=== PATIENT | female | born 2000 | race Caucasian/White ===

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

== ENCOUNTER 2022-01-09 14:09 | Outpatient (RCR) | payer OTHER, SELFPAY ==
[2022-01-12] MEDS: RHO(D) IMMUNE GLOBULIN 300 MCG/2 ML SYRINGE IM (10:16)
== END 2022-04-09 23:59 | disposition home or self-care (01) ==
LOC: ANHLAB 14:09
PROVIDERS: Visit Provider Obstetrics & Gynecology
DX: Z29.13 Encounter for prophylactic Rho(D) immune globulin (principal); O36.0190 Maternal care for anti-D [Rh] antibodies, unspecified trimester, not applicable or unspecified; Z3A.00 Weeks of gestation of pregnancy not specified
CPT/HCPCS: 36415; 85461; 90384; J2790

== ENCOUNTER 2022-03-19 14:30 | Observation (INO) | payer OTHER, SELFPAY ==
[2022-03-19 15:00] VITALS: BMI 30.4
--- NOTE | 2022-03-19 16:01 | LDADM ---
This patient, Kusum Solano, was admitted to Labor/Delivery/Recovery 104 on 03/19/22 at 14:30. Plans for labor, pain management and were discussed with patient. Patient/family oriented to hospital policies and general routines including ID bracelet, bed and alarms, visiting hours, pain management, procedures, bathroom and other care routines, personal items, smoking policy, room service/diet and guest tray routines, infant security routines, and visiting hours. Patient/Family are encouraged to report perceived risks to care and to ask questions if they do not understand what they are told or what they should do. See OBIX for further documentation.
--- NOTE | 2022-03-20 07:25 | PM.OBTRLD ---
OB - Triage/Final Diagnosis Visit Information Date of evaluation: 03/19/22 Reason for evaluation: threatened labor Comments/Additional reasons for admission: I have assessed the risk for this patient, Kusumblayne Solano, and determined that she would benefit from observation care. Evaluation Vital signs: Vital Signs - 24 hr 03/19/22 15:00 Oxygen Delivery Room Air
== END 2022-03-19 16:00 | disposition home or self-care (01) ==
PROVIDERS: Admitting Provider Obstetrics & Gynecology; Visit Provider Obstetrics & Gynecology
DX: O47.1 False labor at or after 37 completed weeks of gestation (principal); Z3A.38 38 weeks gestation of pregnancy
CPT/HCPCS: G0378; G0379

== ENCOUNTER 2022-03-21 05:40 | Inpatient (IN) | payer OTHER, SELFPAY ==
[2022-03-21] VITALS (113 sets, daily range): BP systolic 79–143; BP diastolic 43–83; PULSE 49–113; RESP 16–18; TEMP 36.1–36.9; O2SAT 75–100; BMI 31.0
--- NOTE | 2022-03-21 06:19 | P.PNAN_ITS ---
Anes - Eval Pre Procedure Procedure: labor epidural Date/Time: 03/21/22 06:19 Surgeon: michelle Preop Diagnosis: pain during labor Pre Op Diagnosis: IOL Patient Data Age: 22 Gender: F Height: Weight: Last Vital Signs Temp 36.5 C 03/21/22 05:58 Pulse 102 H 03/21/22 05:58 Resp 16 03/21/22 05:58 BP 112/71 03/21/22 05:58 Allergies Allergy/AdvReac Type Severity Reaction Status Date / Time No Known Allergies Allergy Unverified 12/26/18 13:10 Home Medications Medication Instructions Recorded Confirmed Type albuterol sulfate 90 mcg/actuation 1 puff inhalation BID 03/02/20 03/02/20 History aerosol inhaler (ProAir HFA) vits no.126-ferrous fum 1 tablet PO DAILY 03/02/20 03/02/20 History 28 mg iron-folic acid 800 mcg tablet (Classic ) sertraline 50 mg tablet (Zoloft) 50 mg PO Q12HR 02/26/22 History Patient hx anesthesia problems: none Family hx anesthesia problems: none Results Review: All pre-operative results and documents have been reviewed as part of the pre- operative evaluation. [facility] Past Medical History Medical History (Updated 04/08/20 @ 08:14 by Nabeel Saxena MD) Asthma Marijuana smoker UTI due to Klebsiella species Family History Family History Mother Anxiety Grandparent Diabetes mellitus Heart disease Hypertension Grandparent Anxiety Diabetes mellitus Depression Heart disease Hypertension Social History Social History Smoking packs per day: 1 Smoking cigarettes per day: 20.0 Years smoked: 2 Smoking pack-years: 2.00 Smoking status: Current every day smoker Tobacco type: cigarettes Second hand tobacco smoke exposure: Yes Alcohol intake: never Substance use: current Substance use type: marijuana Last use: 02/25/22 Additional occupation/education comments: 8th grade drop out Gender identity (if verbalized by the patient): Female Sexual Orientation (if Verbalized by the Patient): Straight or Heterosexual Spiritual care concerns: No Agree to blood products: Yes Exam Day of Procedure 03/21/22 06:19
[2022-03-21] MEDS: LACTATED RINGERS 1,000 ML 125 ML IV CONT ×3 (06:46→10:49)
[2022-03-21] MEDS: OXYTOCIN 30 UNITS/NS 500 ML 30 UNITS/500 ML BAG IV CONT (06:47)
[2022-03-21] MEDS: AMPICILLIN 2 GM/NS 100 ML 2 GM/100 ML BAG IVPB (06:47)
--- NOTE | 2022-03-21 06:54 | PM.IMHP ---
H&P: HPI History of Present Illness Date/Time: 03/21/22 06:54 Chief Complaint: Induction of labor at term Narrative: a 22-year-old 3 para 1011 whose last menstrual period is unknown, EDC is 03/28/2022, confirmed by 11 week ultrasound, who presents at 39 weeks gestation for induction of labor. She is positive for group B strep with advanced cervical dilatation. has been relatively unremarkable. She does have depression and has been on sertraline through the . [facility] Past Medical History Medical History Asthma Marijuana smoker UTI due to Klebsiella species Family History Family History Mother Anxiety Grandparent Diabetes mellitus Heart disease Hypertension Grandparent Anxiety Diabetes mellitus Depression Heart disease Hypertension Social History Social History Smoking packs per day: 1 Smoking cigarettes per day: 20.0 Years smoked: 2 Smoking pack-years: 2.00 Smoking status: Current every day smoker Tobacco type: cigarettes Second hand tobacco smoke exposure: Yes Alcohol intake: never Substance use: current Substance use type: marijuana Last use: 02/25/22 Additional occupation/education comments: 8th grade drop out Gender identity (if verbalized by the patient): Female Sexual Orientation (if Verbalized by the Patient): Straight or Heterosexual Spiritual care concerns: No Agree to blood products: Yes Meds Home Medications and Allergies Home Medications Medication Instructions Recorded Confirmed Type albuterol sulfate 90 mcg/actuation 1 puff inhalation BID 03/02/20 03/02/20 History aerosol inhaler (ProAir HFA) vits no.126-ferrous fum 1 tablet PO DAILY 03/02/20 03/02/20 History 28 mg iron-folic acid 800 mcg tablet (Classic ) sertraline 50 mg tablet (Zoloft) 50 mg PO Q12HR 02/26/22 History Allergies Allergy/AdvReac Type Severity Reaction Status Date / Time No Known Allergies Allergy Unverified 12/26/18 13:10 Vital Signs Vital Signs - 24 hr 03/21/22 05:58 03/21/22 06:30 03/21/22 06:32 Temperature 97.7 F Pulse Rate 102 H 91 92 Respiratory Rate 16 Blood Pressure 112/71 117/56 L 112/65 Exam Const: General: cooperative and healthy appearing Nutritional Appearance: average body habitus Orientation/consciousness: oriented to person, oriented to place and oriented to time HENMT: Head: normal to inspection Neck: Neck: normal visual inspection Chest: Chest palpation & inspection: normal inspection of the chest Resp: Effort & Inspection: normal respiratory effort Cardio: Rate: regular rate Rhythm: regular rhythm GI: Inspection: normal to inspection : External Female Exam: normal external appearance Speculum Exam - Vagina: normal appearance of the vagina Speculum Exam - Cervix: normal appearance of the cervix ( Cervix 3/ 75/-1. AROM clear. FHT is reassuring) Bimanual exam- vagina & uterus: enlarged Assessment and Plan Assessment and plan (1) Term : Code(s): Z34.90 - Encounter for supervision of normal , unspecified, unspecified trimester Status: Acute (2) Group beta Strep positive: Code(s): B95.1 - Streptococcus, group B, as the cause of diseases classified elsewhere Status: Acute Plan medical induction of labor. Spontaneous vaginal delivery is expected. Group B strep prophylaxis. Epidural candidate
--- NOTE | 2022-03-21 06:58 | LDADM ---
This patient, Kusum Solano, was admitted to Labor/Delivery/Recovery 104 on 03/21/22 at 05:40. Plans for labor, pain management and were discussed with patient. Patient/family oriented to hospital policies and general routines including ID bracelet, bed and alarms, visiting hours, pain management, procedures, bathroom and other care routines, personal items, smoking policy, room service/diet and guest tray routines, infant security routines, and visiting hours. Patient/Family are encouraged to report perceived risks to care and to ask questions if they do not understand what they are told or what they should do. See OBIX for further documentation.
[2022-03-21 07:02] LABS: Basophils Absolute Auto 0.1 K/mm3 (0.0-0.1); Basophils Percent Auto 0.5 % (0.2-1.2); Eosinophils Absolute Auto 0.1 K/mm3 (0-0.3); Eosinophils Percent Auto 0.8 % (0-4.4); Hematocrit 30.8 % (37.0-47.0); Hemoglobin 9.9 g/dL (12.0-15.0); Immature Granulocyte Absolute 0.26 K/mm3 (0.00-0.031); Immature Granulocyte Percent A 1.8 % (0-0.5); Lymphocytes Absolute Auto 2.95 K/mm3 (0.9-3.2); Lymphocytes Percent Auto 20.8 % (18.3-44.2); Mean Corpuscular HGB Conc 32.1 g/dl (32-36); Mean Corpuscular Hemoglobin 27.7 pg (26-34); Mean Corpuscular Volume 86.3 fl (80-100); Mean Platelet Volume 11.6 fl (7.4-10.4); Monocytes Percent Auto 7.1 % (2.6-8.5); Neutrophils Absolute Auto 9.8 K/mm3 (1.3-6.7); Platelet Count Result 275 k/mm3 (150-375); Red Blood Count 3.57 M/mm3 (4.2-5.4); Red Cell Distribution Width 14.1 % (11.5-14.5); White Blood Count 14.2 K/mm3 (4.5-10.0)
[2022-03-21 07:18] LABS: Barbiturate Screen Urine Negative (Negative); Benzodiazepines Screen Urine Negative (Negative)
[2022-03-21 07:21] LABS: Amphetamine Screen Urine Negative (Negative); Cocaine Screen Urine Negative (Negative); Methadone Screen Urine Negative (Negative); Opiate Screen Urine Negative (Negative); Phencyclidine Screen Urine Negative (Negative)
[2022-03-21 07:36] LABS: Cannabinoid Screen Urine Positive (Negative)
[2022-03-21] MEDS: AMPICILLIN 1 GM/NS 50 ML 1 GM/50 ML BAG IVPB (10:45)
[2022-03-21 12:11] LABS: Rapid Plasma Reagin Non-Reactive (NonReactive)
--- NOTE | 2022-03-21 14:49 | PM.OBPRVD ---
OB - Delivery Note Procedure Delivery date: 03/21/22 Procedure: mil/gbs proph Induction method: AROM Delivery augmentation: Pitocin Delivery monitor: External FHT and External Uterine Route of delivery: Episiotomy description: None Laceration Description: Perineal - 1st Degree Delivery repair: vicryl Specimen: No Quantitative Blood Loss (ml): 59 Anesthesia type: Epidural Disposition: Floor Complications: amp x 2 Baby Date of : 03/21/22 Time of : 14:40 Weeks of gestation at delivery: 39 Infant gender: Female presentation: vertex position: Right Occiput Anterior Placenta delivery description: Spontaneous Cord Vessel Description: 3 Vessels score one minute: 8 score five minutes: 9
[2022-03-21] MEDS: OXYTOCIN 30 UNITS/NS 500 ML 30 UNITS/500 ML BAG 125 UNITS IV CONT (15:12)
[2022-03-21] MEDS: IBUPROFEN 600 MG TABLET PO (15:44)
[2022-03-21] MEDS: WITCH HAZEL 40 PADS 1 PAD TOPICAL (15:46)
[2022-03-21] MEDS: BENZOCAINE 20% AER SPR (*SP) 56 GM CAN 1 SPRAY TOPICAL (15:46)
--- NOTE | 2022-03-21 16:36 | PC.NURSE ---
Report given to YANN Chavez.
--- NOTE | 2022-03-21 17:09 | PC.NURSE ---
Amnio infusion not given. Orders for amnio infusion if pt variables not resolved with position changes. Pt variables were resolved with position changes.
--- NOTE | 2022-03-21 17:17 | OBPPTRN ---
Patient transferred to post room #281 via wheelchair. Support person present. Oriented to unit, room, information board, rooming in, admission packet and security measures. Patient verbalizes understanding.
[2022-03-21] MEDS: POLYSACCHARIDE IRON COMPLEX 150 MG CAPSULE PO (17:41)
[2022-03-22 00:20] VITALS: BP 102/64; PULSE 75; RESP 14; TEMP 36.9; O2SAT 99
[2022-03-22] MEDS: IBUPROFEN 600 MG TABLET PO ×2 (00:21→13:30)
[2022-03-22 04:10] VITALS: BP 105/65; PULSE 66; RESP 14; TEMP 36.7; O2SAT 99
[2022-03-22 05:31] LABS: Hematocrit 25.4 % (37.0-47.0); Hemoglobin 8.2 g/dL (12.0-15.0)
[2022-03-22 07:10] VITALS: BP 105/71; PULSE 77; RESP 16; TEMP 36.6; O2SAT 100
--- NOTE | 2022-03-22 07:47 | WPDANLDPN2 ---
Anes-Prog Note L&D Date/Time: 03/22/22 07:47 Comfortable throughout: labor and delivery Neuraxial method: epidural Epidural/Spinal procedure site: clean & non-tender Neuro status: Neuro function grossly intact. Cardiovascular status: normal Respiratory status: normal Airway patency: baseline Mental status: baseline Post-Op hydration status: normal Vital Signs: Last Vital Signs Temp 36.7 C 03/22/22 04:10 Pulse 66 03/22/22 04:10 Resp 14 03/22/22 04:10 BP 105/65 03/22/22 04:10 Pulse Ox 99 03/22/22 04:10 O2 Del Method Room Air 03/21/22 20:10 Pain score (VAS): 08/21 I/O: Intake & Output 03/21/22 03/21/22 03/22/22 15:59 23:59 07:59 Intake Total 1999 Output Total 59 220 Balance 1941 - Post-procedural complaints: none Patient feedback: Patient satisfied with anesthetic care.
[2022-03-22] MEDS: MULTIVIT/MIN/PREN/FOL AC/IRON TABLET 1 TAB PO (09:43)
[2022-03-22] MEDS: POLYSACCHARIDE IRON COMPLEX 150 MG CAPSULE PO ×2 (09:43→18:42)
[2022-03-22] MEDS: DOCUSATE SODIUM 100 MG CAPSULE PO ×2 (09:43→18:42)
--- NOTE | 2022-03-22 09:47 | PC.NURSE ---
[id number] Introductions were made, then consulted with patient to assess needs related to . Mother led the conversation with her?plans to feed?her infant and the?experience so far. Mother states she bottle fed her infant because her nipples are sore. Resources provided for inpatient and outpatient services using a resource guide and mom/baby guide. Mother voiced understanding of information and will call if there is a request for assistance. Reported to primary RN.
--- NOTE | 2022-03-22 10:44 | PC.NURSE ---
[id number] Patient called RN to the room for assistance. Consulted with patient to assess needs related to . Mother led the conversation with her experience feeding her so far and states she supplemented with a bottle twice related to her nipples being sore. Left nipple is excoriated down the middle of the nipple from earlier and right nipple is less sore and no injury is seen. Mother works well with her with encouragement and education. Diaper changed of a small stool, then encouraged understanding of the benefits of skin to skin (unwrapping and placing vertically on her chest), responsive feeding and how to watch for early feeding signs, frequency of feeding on demand about every 8-12 times in 24 hours (every 2-3 hours), milk production, duration of feeding, signs of adequate intake/output and how to record on the feeding sheet. Reviewed positioning and ear, shoulder, hip alignment, supporting the breast, asymmetrical latch (off-center), and leading with the chin with a big open side gape. latched optimally to the right breast in cross cradle position. Education given to mother of how to visualize good rocking motion suck and how to visualize with listening for good swallow pause ratios, and how to compress to stimulate drinking at the breast. Discussed how to watch for good intake using the pie demonstration. was able to maintain latch without discomfort to mother. Nipple care reviewed with optimal latch and good positioning. Reminding mother of comfort measures of healing with a warm and wet washcloth to rinse breast, then leave open to air-dry as needed. Reviewed good handwashing when or touching the breast/nipples to prevent infection. Infant self-detached and was placed skin to skin. Once feeding cues were visualized was moved to the left breast using the football positioning. Infant latched effectively but did not maintain for more than 5 min. Infant placed skin to skin, feeding cues visualized, then infant latched to the right breast using the football positioning and maintained latch with no pain to mother for 15 min. Another diaper is changed with urine and large meconium stool. Resources used to facilitate learning were used with the tool/mom and baby guide. Mother voiced understanding of responsive feedings, stimulating with skin to skin, hand expressed colostrum, touch, talking to to encourage if it has been 2 -3 hours since the start of the last , to call if infant does not latch or there is discomfort with . Reported to the primary RN.
[2022-03-22] MEDS: ACETAMINOPHEN 325 MG TABLET 650 MG PO ×2 (10:50→18:40)
[2022-03-22 11:43] VITALS: BP 109/61; PULSE 90; RESP 16; TEMP 36.6; O2SAT 100
--- NOTE | 2022-03-22 12:35 | PC.NURSE ---
[id number] Consulted with patient to assess needs related to after patient requested. Mother is resting with her infant swaddled and mother states infant was showing feeding cues, then went to sleep. Mother works well with her with encouragement. Reviewed working with , protecting the nipples with an optimal deep latch, good positioning, and good hand washing. Encouraged understanding the benefits of skin to skin, responding to feeding cues, frequencies of feeding 8-12 times in 24 hours (approximately 2-3 hours), and signs of adequate intake encouraging swallowing at the breast. Reviewed positioning and alignment, supporting breast, off-centered (asymmetrical latch) and leading with the chin with big open wide gape. Infant latched optimally to the right breast in football position. Education given to mother of how to visualize suck/swallow ratios and drinking at the breast. Infant was able to maintain latch without discomfort to mother. Nipple care reviewed with optimal latch and good positioning. Resources from earlier were referred to facilitate learning. Mother voiced understanding of the education shared, calling for assistance if the infant does not latch or if there is discomfort with . Reported to the primary RN.
[2022-03-22] MEDS: RHO(D) IMMUNE GLOBULIN 300 MCG/2 ML SYRINGE IM (13:24)
--- NOTE | 2022-03-22 14:00 | PC.NURSE ---
Pt introductions made and plan of care discussed per post , pain management, breast feeding, daily care activities. PT received such instructions this shift via one to one discussion, mom baby care guide and demonstrations. PT sole recipient of such instructions and no barriers to learning identified at this time. PT verbalized understanding of such care.
[2022-03-22 19:30] VITALS: BP 113/57; PULSE 78; RESP 14; TEMP 36.7; O2SAT 100
[2022-03-23] MEDS: IBUPROFEN 600 MG TABLET PO ×2 (01:37→09:01)
--- NOTE | 2022-03-23 06:52 | P.DS_ITS ---
DS: Admitting Diagnosis Discharge Date 03/23/2022 Admitting Diagnosis term DS: Discharge Diagnosis Discharge Diagnosis (1) Term : Code(s): Z34.90 - Encounter for supervision of normal , unspecified, unspecified trimester Status: Acute (2) Group beta Strep positive: Code(s): B95.1 - Streptococcus, group B, as the cause of diseases classified elsewhere Status: Acute DS: Summary Hospital Course Reason for hospitalization: labor at term Hospital Course: the patient was admitted for induction labor with group B strep underwent spontaneous vaginal delivery with group B strep prophylaxis. Her 48hour course was unremarkable. She remained afebrile. She was up, voiding without difficult y, ambulating, generally without complai Time Spent with Patient Time attestation: Total time spent providing and/or coordinating discharge services: DS: Data Data Completed and Pending Labs on day of discharge: Labs from last 24 hours 03/22/22 04:09 Blood Type A Negative Antibody Screen TNP Screen Negative Baby's Blood Type A pos Baby's CHELSEA Positive Doses of RhIg Required 1 Discharge Plan Discharge Attending physician on discharge: Isaiah Don Discharging Clinician: Isaiah Don Patient Disposition: Home Health Service Activity: no straining and pelvic rest Diet: heart healthy Wound Care Instructions: follow printed instructions Patient Instructions: Antibiotic Form Stand Alone Forms: General Discharge Information Follow-up/Referrals: Isaiah Don MD [Physician] - Discharge Medications: Continued sertraline [Zoloft] 50 mg tablet 50 mg PO Q12HR albuterol sulfate [ProAir HFA] 90 mcg/actuation HFA aerosol inhaler 1 puff INHALATION BID Classic 28 mg iron- 800 mcg tablet 1 tablet PO DAILY Date of admission: 03/21/22 05:40 Primary Care Provider: PHYSICIAN,MANAGER FLIGHT Admitting Provider: Isaiah Don Attending physician on admission: Isaiah Don Condition: Stable
--- NOTE | 2022-03-23 06:55 | PM.OBPNVD ---
OB - PN: Subj Subjective Date/time seen: 03/23/22 06:55 Patient comments: no complaints and pain well controlled baby status: doing well OB - PN: Obj Data Labs CBC & Chem 7: 03/22/22 04:09 Labs: Laboratory Results - last 24 hr 03/22/22 04:09 Blood Type A Negative Antibody Screen TNP Screen Negative Baby's Blood Type A pos Baby's CHELSEA Positive Doses of RhIg Required 1 OB - PN A/P Plan day: 2 Plan: routine care, discharge home and follow up 6 weeks Time Spent With Patient Time: Total time spent is greater than 50% in coordination of care (as documented) at patient's floor/unit and/or counseling patient: Time with patient: less than 15 minutes
[2022-03-23 07:40] VITALS: BP 107/66; PULSE 85; RESP 16; TEMP 36.4; O2SAT 100
[2022-03-23 08:00] VITALS: PULSE 85; RESP 16; O2SAT 100
[2022-03-23] MEDS: DOCUSATE SODIUM 100 MG CAPSULE PO (09:01)
[2022-03-23] MEDS: MULTIVIT/MIN/PREN/FOL AC/IRON TABLET 1 TAB PO (09:01)
[2022-03-23] MEDS: POLYSACCHARIDE IRON COMPLEX 150 MG CAPSULE PO (09:01)
--- NOTE | 2022-03-23 10:16 | PC.NURSE ---
Patient viewed the discharge video Mother & Baby Care, The First Two Weeks . Patient was given the opportunity and encouraged to ask questions. Patient verbalized understanding of information shared and has been given the mother/baby guide for home reference.
[2022-03-24 11:48] VITALS: BP 104/54; PULSE 79; RESP 16; TEMP 37.1; O2SAT 100
== END 2022-03-23 11:05 | disposition home or self-care (01) | DRG 560 ==
LOC: ANHLDR 05:42 → ANHOB2 17:24
PROVIDERS: Admitting Provider Obstetrics & Gynecology; Visit Provider Obstetrics & Gynecology
DX: O99.824 Streptococcus B carrier state complicating childbirth (principal); O70.0 First degree perineal laceration during delivery; O76 Abnormality in fetal heart rate and rhythm complicating labor and delivery; Z3A.39 39 weeks gestation of pregnancy; Z37.0 Single live birth
CPT/HCPCS: 36415; 80307; 85014; 85018; 85025; 85461; 86592; 86850; 86880; 86900; 86901; 86902; 90384; A9270; J0290; J2590; J2790; J2795; J7120

== ENCOUNTER 2024-01-14 10:04 | Outpatient (RCR) | payer OTHER, SELFPAY ==
[2024-01-15] MEDS: RHO(D) IMMUNE GLOBULIN 300 MCG/2 ML SYRINGE IM (14:56)
== END 2024-04-13 23:59 | disposition home or self-care (01) ==
LOC: ANHLAB 10:04
PROVIDERS: Visit Provider Obstetrics & Gynecology
DX: Z29.13 Encounter for prophylactic Rho(D) immune globulin (principal); O36.0190 Maternal care for anti-D [Rh] antibodies, unspecified trimester, not applicable or unspecified; Z3A.00 Weeks of gestation of pregnancy not specified
CPT/HCPCS: 36415; 85461; 86850; 86900; 86901; 90384; 96372; J2790

== ENCOUNTER 2024-03-11 12:02 | Outpatient (RCR) | payer OTHER, SELFPAY ==
[2024-02-18 15:36] VITALS: BP 100/52; PULSE 93
[2024-02-25 15:59] VITALS: BP 104/58; PULSE 100
[2024-03-06 14:12] VITALS: BP 104/64; PULSE 106
[2024-03-11 12:45] VITALS: BP 102/62; PULSE 98
== END 2024-05-18 23:59 | disposition home or self-care (01) ==
LOC: ANHOBOP 12:02
PROVIDERS: Visit Provider Obstetrics & Gynecology
DX: O36.8930 Maternal care for other specified fetal problems, third trimester, not applicable or unspecified (principal); Q27.0 Congenital absence and hypoplasia of umbilical artery; Z3A.34 34 weeks gestation of pregnancy; Z3A.35 35 weeks gestation of pregnancy; Z3A.36 36 weeks gestation of pregnancy; Z3A.37 37 weeks gestation of pregnancy
CPT/HCPCS: 59025

== ENCOUNTER 2024-03-26 05:52 | Inpatient (IN) | payer OTHER, SELFPAY ==
[2024-03-26] VITALS (110 sets, daily range): BP systolic 80–117; BP diastolic 32–80; PULSE 74–123; RESP 18; TEMP 36.5–37.2; O2SAT 93–100; BMI 29.1
[2024-03-26 06:52] LABS: Basophils Absolute Auto 0.1 K/mm3 (0.0-0.1); Basophils Percent Auto 0.5 % (0.2-1.2); Eosinophils Absolute Auto 0.1 K/mm3 (0-0.3); Eosinophils Percent Auto 0.8 % (0-4.4); Hematocrit 30.2 % (37.0-47.0); Hemoglobin 9.6 g/dL (12.0-15.0); Immature Granulocyte Absolute 0.27 K/mm3 (0.00-0.031); Immature Granulocyte Percent A 2.1 % (0-0.5); Lymphocytes Absolute Auto 2.06 K/mm3 (0.9-3.2); Lymphocytes Percent Auto 15.8 % (18.3-44.2); Mean Corpuscular HGB Conc 31.8 g/dl (32-36); Mean Corpuscular Hemoglobin 25.7 pg (26-34); Mean Platelet Volume 10.9 fl (7.4-10.4); Monocytes Absolute Auto 0.9 K/mm3 (0.1-0.6); Neutrophils Absolute Auto 9.6 K/mm3 (1.3-6.7); Neutrophils Percent Auto 73.8 % (45.5-73.1); Platelet Count Result 220 k/mm3 (150-375); Red Blood Count 3.73 M/mm3 (4.2-5.4); Red Cell Distribution Width 14.6 % (11.5-14.5); White Blood Count 13.1 K/mm3 (4.5-10.0)
[2024-03-26] MEDS: LACTATED RINGERS 1,000 ML 125 ML IV CONT ×2 (06:58→09:52)
[2024-03-26] MEDS: OXYTOCIN 30 UNITS/NS 500 ML 30 UNITS/500 ML BAG IV CONT (07:03)
--- NOTE | 2024-03-26 07:07 | WPDANESEPP ---
Anes - Eval Pre Procedure Procedure: labor epidural Date/Time: 03/26/24 07:07 Surgeon: rickey Preop Diagnosis: pain during labor Pre Op Diagnosis: IOL Patient Data Age: 24 Gender: F Height: Weight: Allergies Allergy/AdvReac Type Severity Reaction Status Date / Time No Known Allergies Allergy Unverified 03/21/22 07:02 Home Medications Medication Instructions Recorded Confirmed Type albuterol sulfate 90 mcg/actuation 1 puff inhalation BID 03/02/20 03/11/24 History aerosol inhaler (ProAir HFA) vits no.126-ferrous fum 1 tablet PO DAILY 03/02/20 03/11/24 History 28 mg iron-folic acid 800 mcg tablet (Classic ) Laboratory Tests 03/26/24 06:45 WBC 13.1 H K/mm3 (4.5-10.0) RBC 3.73 L M/mm3 (4.2-5.4) Hgb 9.6 L g/dL (12.0-15.0) Hct 30.2 L % (37.0-47.0) MCV 81.0 fl (80-100) MCH 25.7 L pg (26-34) MCHC 31.8 L g/dl (32-36) RDW 14.6 H % (11.5-14.5) Plt Count 220 k/mm3 (150-375) MPV 10.9 H fl (7.4-10.4) Immature Gran % (Auto) 2.1 H % (0-0.5) Neut % (Auto) 73.8 H % (45.5-73.1) Lymph % (Auto) 15.8 L % (18.3-44.2) [place]dwell % (Auto) 7.0 % (2.6-8.5) Eos % (Auto) 0.8 % (0-4.4) Baso % (Auto) 0.5 % (0.2-1.2) Lymph # (Auto) 2.06 K/mm3 (0.9-3.2) Caldwell # (Auto) 0.9 H K/mm3 (0.1-0.6) Eos # (Auto) 0.1 K/mm3 (0-0.3) Baso # (Auto) 0.1 K/mm3 (0.0-0.1) Abs Immat Gran (auto) 0.27 H K/mm3 (0.00-0.031) Absolute Neuts (auto) 9.6 H K/mm3 (1.3-6.7) Absolute Nucleated RBC 0.000 K/mm3 (0.0-0.012) Nucleated RBC % 0.0 % (0.0-0.2) RPR Pending HIV 1&2 Ab/P24 Ag 4thGn Pending Patient hx anesthesia problems: none Family hx anesthesia problems: none Results Review: All pre-operative results and documents have been reviewed as part of the pre-operative evaluation. [facility] Past Medical History Medical History (Updated 03/26/24 @ 07:08 by Janet Flowers CRNA) Anxiety Asthma Depression Marijuana smoker MTHFR gene mutation UTI due to Klebsiella species Family History Family History Mother Anxiety Grandparent Diabetes mellitus Heart disease Hypertension Grandparent Anxiety Diabetes mellitus Depression Heart disease Hypertension Social History Social History Smoking packs per day: 1 Smoking cigarettes per day: 20.0 Years smoked: 2 Smoking pack-years: 2.00 Smoking status: Current every day smoker Tobacco type: cigarettes Second hand tobacco smoke exposure: Yes Alcohol intake: never Substance use: never Substance use type: marijuana Last use: 02/25/22 Living arrangements: with friend(s) Occupation/Education: unemployed Additional occupation/education comments: 8th grade drop out Gender identity (if verbalized by the patient): Female Sexual Orientation (if Verbalized by the Patient): Straight or Heterosexual Spiritual care concerns: No Agree to blood products: Yes Exam Day of Procedure 03/26/24 07:07
--- NOTE | 2024-03-26 07:24 | WPDOBADMIT ---
Obstetrics - Admit Note Admission Note: record reviewed. Additions to the history and/or subsequent changes in the physical findings follow. 24 y/o at 39 2/7 weeks here for induction of labor. GBS neg. Rh neg, got Rhogam. AVSS NST reactive TOCO: contractions every 2-4 min ABD soft, nontender, gravid, vertex EXT nontender Cervix 3/50/-2. AROM with clear fluid. A: IUP at term, with favorable cervix, desiring induction of labor. P: Oxytocin. Anticiptate .
[2024-03-26 07:45] LABS: HIV 1/2 Ab P24 Ag Result Negative (Negative)
--- NOTE | 2024-03-26 08:07 | LDADM ---
This patient, Kusum Solano, was admitted to Labor/Delivery/Recovery 106 on 03/26/24 at 05:52. Plans for labor, pain management and were discussed with patient. Patient/family oriented to hospital policies and general routines including ID bracelet, bed and alarms, visiting hours, pain management, procedures, bathroom and other care routines, personal items, smoking policy, room service/diet and guest tray routines, infant security routines, and visiting hours. Patient/Family are encouraged to report perceived risks to care and to ask questions if they do not understand what they are told or what they should do. See OBIX for further documentation.
[2024-03-26 10:32] LABS: Rapid Plasma Reagin Non-Reactive (NonReactive)
--- NOTE | 2024-03-26 12:42 | PM.OBPNLAB ---
Pain Control Date/time seen: 03/26/24 12:42 Comments: Comfortable. Pelvic Exam Dilation (cm): 5 Effacement (%): 80 station: -2 Contractions Contraction frequency: 3 Contraction pattern: Regular Status Comments: Reactive with occasional mild variable decelerations with contractions Assessment and Plan Comments: Continue labor.
[2024-03-26] MEDS: ALBUTEROL SULFATE (*SP) AEROSOL 1 PUFF 2 PUFF INHALATION (12:54)
[2024-03-26] MEDS: SODIUM CHLORIDE 0.9% IV 300 ML 600 ML I-UTERINE (13:05)
[2024-03-26] MEDS: miSOPROStol 200 MCG TABLET 800 MCG (14:47)
--- NOTE | 2024-03-26 14:53 | P.PCNOB_ITS ---
OB - Vaginal Delivery Note Procedure Delivery date: 03/26/24 Induction method: Per Pitocin Protocol Delivery augmentation: Rupture of Membranes Delivery monitor: External FHT, External Uterine and Internal Uterine Route of delivery: Laceration Description: Perineal - 1st Degree Delivery repair: vicryl (3-0) Specimen: Yes (Cord blood) Quantitative Blood Loss (ml): 350 Anesthesia type: Epidural Disposition: PACU Complications: None Narrative: 24 y/o at 39 2/7 weeks gestation who presented to the hospital for induction of labor. Oxytocin was administered intravenously. Amniotomy was performed with return of clear fluid. She received an epidural for pain control. Her labor progressed and her cervix dilated completely. She pushed with good effort and delivered the infant's head to the perineum, followed by the body. The nose and mouth were bulb suctioned. After a delay, the cord was clamped and cut. The infant was handed off the field. Cord blood was collected. The placenta delivered spontaneously and was grossly normal in appearance. The usual 3 vessel cord was noted. A first degree midline perineal laceration was sustained. This was reapproximated using 3 0 Vicryl in interrupted figure of eight fashion. Excellent hemostasis resulted as did excellent reapproximation of the normal anatomy. Needle and instrument counts were correct. Some uterine atony was addressed with Cytotec 800 mcg [place]. Hemostasis was excellent. The patient was taken to recovery room in stable condition. The infant went to the nursery in stable condition. I was present and scrubbed for the entire delivery. [place] Baby Date of : 03/26/24 Time of : 14:36 Gestational Age by Date: 39 gender: Female presentation: vertex position: Left Occiput Anterior Placenta delivery description: Spontaneous and Normal Configuration Cord Vessel Description: 3 Vessels and Delayed Cord Clamping
--- NOTE | 2024-03-26 14:55 | P.DS_ITS ---
DS: Admitting Diagnosis Discharge Date 03/27/24 Admitting Diagnosis IUP at 39 2/7 weeks DS: Discharge Diagnosis Discharge Diagnosis (1) (normal spontaneous vaginal delivery): Code(s): O80 - Encounter for full-term uncomplicated delivery Status: Acute OB - DS: Summary OB Procedures : None OB Procedures Intrapartum: Spontaneous Vag Delivery OB Procedures: : None Peripartum Data Laceration Description: Perineal - 1st Degree Time Spent with Patient Time attestation: Total time spent providing and/or coordinating discharge services: DS: Data Data Completed and Pending Labs on day of discharge: Labs from last 24 hours 03/26/24 06:45 WBC 13.1 H RBC 3.73 L Hgb 9.6 L Hct 30.2 L MCV 81.0 MCH 25.7 L MCHC 31.8 L RDW 14.6 H Plt Count 220 MPV 10.9 H Immature Gran % (Auto) 2.1 H Neut % (Auto) 73.8 H Lymph % (Auto) 15.8 L Graham % (Auto) 7.0 Eos % (Auto) 0.8 Baso % (Auto) 0.5 Lymph # (Auto) 2.06 Graham # (Auto) 0.9 H Eos # (Auto) 0.1 Baso # (Auto) 0.1 Abs Immat Gran (auto) 0.27 H Absolute Neuts (auto) 9.6 H Absolute Nucleated RBC 0.000 Nucleated RBC % 0.0 RPR Non-reactive HIV 1&2 Ab/P24 Ag 4thGn Negative Blood Type A Negative Antibody Screen Positive Antibody Identification Passive Due to RH Imm Glob Antigen Identification TNP CHELSEA, IgG Interpret Neg CHELSEA, Poly Interpret Not Performed CHELSEA, Complement Interp Negative Discharge Plan Discharge Attending physician on discharge: Anastacio Villalpando Discharging Clinician: Anastacio Villalpando Patient Disposition: Home, Self-Care Activity: pelvic rest Diet: regular Discharge Instructions: Call or return if temperature above 100.4? F, increased abdominal pain, increased vaginal bleeding or any new problems. Patient Instructions: How to Stop Smoking (DC) Stand Alone Forms: General Discharge Information Follow-up/Referrals: Anastacio Villalpando MD [Physician] - 6 Weeks Discharge Medications: New ibuprofen 600 mg tablet 600 mg PO Q6H PRN (Reason: cramps) Qty: 30 0RF sertraline 50 mg tablet 50 mg PO DAILY Qty: 30 1RF ferrous sulfate 325 mg (65 mg iron) tablet 325 mg PO DAILY Qty: 30 0RF Continued albuterol sulfate [ProAir HFA] 90 mcg/actuation HFA aerosol inhaler 1 puff INHALATION BID PRN (Reason: SOB) Classic 28 mg iron- 800 mcg tablet 1 tablet PO DAILY Date of admission: 03/26/24 05:52 Primary Care Provider: PHYSICIAN,IMPROVEMENT MANAGER Admitting Provider: Anastacio Villalpando Attending physician on admission: Anastacio Villalpando Condition: Stable
[2024-03-26] MEDS: OXYTOCIN 30 UNITS/NS 500 ML 30 UNITS/500 ML BAG 125 UNITS IV CONT (15:10)
[2024-03-26] MEDS: BENZOCAINE 20% AER SPR (*SP) 56 GM CAN 1 SPRAY TOPICAL (17:13)
[2024-03-26] MEDS: WITCH HAZEL 40 PADS 1 PAD TOPICAL (17:13)
[2024-03-26] MEDS: IBUPROFEN 600 MG TABLET PO ×2 (17:13→23:39)
[2024-03-26] MEDS: ACETAMINOPHEN 325 MG TABLET 650 MG PO ×2 (17:13→23:39)
--- NOTE | 2024-03-26 17:20 | PC.NURSE ---
Patient transferred to post room #282 via wheelchair. Support person present. Oriented to unit, room, information board, rooming in, admission packet and security measures. Patient verbalizes understanding.
[2024-03-27 04:20] VITALS: BP 100/60; PULSE 78; RESP 16; TEMP 36.5; O2SAT 100
[2024-03-27 05:39] LABS: Hematocrit 26.5 % (37.0-47.0); Hemoglobin 8.5 g/dL (12.0-15.0)
[2024-03-27] MEDS: DOCUSATE SODIUM 100 MG CAPSULE PO (08:08)
[2024-03-27] MEDS: MULTIVIT/MIN/PREN/FOL AC/IRON TABLET 1 TAB PO (08:08)
[2024-03-27] MEDS: IBUPROFEN 600 MG TABLET PO (08:08)
[2024-03-27] MEDS: POLYSACCHARIDE IRON COMPLEX 150 MG CAPSULE PO (08:08)
[2024-03-27 08:20] VITALS: BP 110/70; PULSE 82; RESP 16; TEMP 36.6; O2SAT 100
--- NOTE | 2024-03-27 09:09 | PM.OBPNVD ---
OB - PN: Subj Subjective Date/time seen: 03/27/24 09:09 Narrative: Pain OK. Would like to go home. OB - PN: Obj Data Labs 03/27/24 04:23 Labs: Laboratory Results - last 24 hr 03/26/24 03/27/24 06:45 04:23 Hgb 8.5 L Hct 26.5 L RPR Non-reactive Antibody Identification Passive Due to RH Imm Glob Antigen Identification TNP CHELSEA, Complement Interp Negative OB - PN A/P Plan day: 1 Comments: A: PPD#1, doing well. P: Home to f/u 6 weeks. Exam Psych: Other: AVSS ABD soft, nontender, fundus firm EXT nontender
[2024-03-27 12:40] VITALS: BP 91/54; PULSE 87; RESP 16; TEMP 37.2; O2SAT 100
--- NOTE | 2024-03-27 12:50 | PC.NURSE ---
Consulted with mother concerning needs and she shared her ability to independently latch infant optimally without pain. Mother is feeding appropriately for growth of and understands stimulating to eat if needed. Infant has had appropriate feedings in the last 24 hours meets the outcomes for weight, output, blood sugar and jaundice at this time. Reinforced understanding of milk production, transition of milk, signs of adequate intake, transition of stool, prevention/relief of engorgement, mastitis, community resources, and when to call a provider using the resource of the feeding sheet along with the mom and baby guide. Mother voiced understanding of the information shared, is confident to continue effectively her at home, when to call for assistance, denies any additional assistance or education at this time. Reported to the Primary RN.
--- NOTE | 2024-03-27 13:02 | WPDANLDPN2 ---
Anes-Prog Note L&D Date/Time: 03/27/24 13:02 Comfortable throughout: labor and delivery Neuraxial method: epidural Epidural/Spinal procedure site: clean & non-tender Neuro status: Neuro function grossly intact. Cardiovascular status: normal Respiratory status: normal Airway patency: baseline Mental status: baseline Post-Op hydration status: normal Vital Signs: Last Vital Signs Temp 37.2 C 03/27/24 12:40 Pulse 87 03/27/24 12:40 Resp 16 03/27/24 12:40 BP 91/54 L 03/27/24 12:40 Pulse Ox 100 03/27/24 12:40 O2 Del Method Room Air 03/26/24 08:01 Pain score (VAS): 3/10 I/O: Intake & Output 03/26/24 03/27/24 03/27/24 23:59 07:59 15:59 Intake Total 240 Balance 240 Post-procedural complaints: none Patient feedback: Patient satisfied with anesthetic care.
[2024-03-27] MEDS: SERTRALINE HCL 50 MG TABLET PO (13:59)
[2024-03-30 11:21] VITALS: BP 100/60; PULSE 81; RESP 18; TEMP 36.7; O2SAT 99
== END 2024-03-27 16:15 | disposition home or self-care (01) | DRG 560 ==
LOC: ANHLDR 14:56 → ANHOB2 17:20
PROVIDERS: Admitting Provider Obstetrics & Gynecology; Visit Provider Obstetrics & Gynecology
DX: O70.0 First degree perineal laceration during delivery (principal); Z3A.39 39 weeks gestation of pregnancy; Z37.0 Single live birth; Z67.91 Unspecified blood type, Rh negative
CPT/HCPCS: 36415; 85014; 85018; 85025; 86592; 86703; 86850; 86880; 86900; 86901; 86902; A9270; G0432; J2590; J2795; J7030; J7120

== ENCOUNTER 2025-02-23 13:29 | Outpatient (RCR) | payer OTHER, SELFPAY ==
[2025-02-26] MEDS: RHO(D) IMMUNE GLOBULIN 300 MCG/2 ML SYRINGE IM (08:35)
== END 2025-05-24 23:59 | disposition home or self-care (01) ==
LOC: ANHLAB 13:29
PROVIDERS: Visit Provider Obstetrics & Gynecology
DX: Z29.13 Encounter for prophylactic Rho(D) immune globulin (principal); O36.0130 Maternal care for anti-D [Rh] antibodies, third trimester, not applicable or unspecified; Z3A.00 Weeks of gestation of pregnancy not specified
CPT/HCPCS: 36415; 85461; 86850; 86900; 86901; 90384; 96372; J2790

== ENCOUNTER 2025-05-05 08:55 | Outpatient (RCR) | payer OTHER, SELFPAY ==
--- NOTE | ~2025-05-05 | US_ITS ---
EXAMINATION: US OB BPP wo non-stress DATE: 05/05/2025 10:31 INDICATION: Decreased movement during third trimester . Assess biophysical profile. TECHNIQUE: Real-time pelvic ultrasound was performed. The interpreting radiologist was not present for the study. COMPARISON: None. FINDINGS: There is a single living fetus in vertex presentation. The placenta is fundal. heart rate is 127 beats per minute (bpm). Biophysical profile performed by the technologist: breathing (30 sec sustained breathing in 30 minutes): 2 out of 2 movement (3 gross body movements in 30 minutes): 2 out of 2 tone (one episode of mocvtfd-drjrstoyp-jpkwcfc limb movement): 2 out of 2 Amniotic fluid pocket (2 cm): 2 out of 2 Total score: 8 out of 8 IMPRESSION: 1. Single living fetus in vertex presentation with heart rate of 127 bpm. 2. Biophysical profile 8 out of 8. Reviewed, dictated and finalized at location A.
[2025-05-05 13:01] VITALS: BP 100/52; PULSE 87
== END 2025-05-12 17:43 | disposition other institution (70) ==
LOC: ANHOBOP 08:55
PROVIDERS: Visit Provider Obstetrics & Gynecology
DX: O36.8130 Decreased fetal movements, third trimester, not applicable or unspecified (principal); Z3A.38 38 weeks gestation of pregnancy
CPT/HCPCS: 59025; 76819

== ENCOUNTER 2025-05-12 06:03 | Inpatient (IN) | payer OTHER, SELFPAY ==
[2025-05-12] VITALS (172 sets, daily range): BP systolic 70–169; BP diastolic 39–146; PULSE 44–174; RESP 16; TEMP 36.1–36.7; O2SAT 78–100
[2025-05-12 06:42] LABS: Hematocrit 30.4 % (37.0-47.0); Hemoglobin 9.4 g/dL (12.0-15.0); Immature Granulocyte Percent A 0.6 % (0-0.5); Lymphocytes Absolute Auto 2.39 K/mm3 (0.9-3.2); Mean Corpuscular HGB Conc 30.9 g/dl (32-36); Mean Corpuscular Hemoglobin 24.0 pg (26-34); Mean Corpuscular Volume 77.6 fl (80-100); Nucleated Red Blood Cells Absolute Auto 0.000 K/mm3 (0.0-0.012); Nucleated Red Blood Cells Perc 0.0 % (0.0-0.2); Platelet Count Result 334 k/mm3 (150-375); Red Blood Count 3.92 M/mm3 (4.2-5.4); White Blood Count 10.6 K/mm3 (4.5-10.0)
[2025-05-12] MEDS: LACTATED RINGERS 1,000 ML 125 ML IV CONT (06:51)
[2025-05-12] MEDS: OXYTOCIN 30 UNITS/NS 500 ML 30 UNITS/500 ML BAG IV CONT ×2 (06:53→15:15)
--- NOTE | 2025-05-12 06:59 | PM.IMHP ---
H&P: HPI History of Present Illness Date/Time: 05/12/25 06:59 Chief Complaint: Term Narrative: This is a 25 year 4 para 3 whose last menstrual period was 07/19/2024, EDC is 05/19/2025, confirmed by early ultrasound who presents at 39 weeks gestation for induction of labor. She negative for group B strep passed her diabetic test and the receive RhoGAM at 28 weeks. She is on BuSpar 5mg Q 12 p.r.n. Review of Systems Review of Systems: All systems reviewed & are unremarkable except as noted in HPI and below PMFSH Past Medical History Medical History Depression Anxiety MTHFR gene mutation Marijuana smoker UTI due to Klebsiella species Asthma Family History Family History Mother Anxiety Grandparent Diabetes mellitus Heart disease Hypertension Grandparent Anxiety Diabetes mellitus Depression Heart disease Hypertension Social History Social History Smoking packs per day: 1 Smoking cigarettes per day: 20.0 Years smoked: 5 Smoking pack-years: 5.00 Smoking status: Current every day smoker Tobacco type: cigarettes Second hand tobacco smoke exposure: Yes Alcohol intake: never Substance use: never Substance use type: marijuana Last use: 02/25/22 Do You Feel Safe in your Home?: Yes Lack of Transportation: No Lack of Food: Never True Current Housing: I Have Housing Concerned About Future Housing: No Difficulty Paying Gas/Electric Bills: No Difficulty Paying for Meds: No Currently Unemployed: YES Education: Grade School Difficulty w/ Childcare or Family Care: No Living arrangements: with friend(s) Occupation/Education: unemployed Additional occupation/education comments: 8th grade drop out Gender identity (if verbalized by the patient): Female Sexual Orientation (if Verbalized by the Patient): Straight or Heterosexual Spiritual care concerns: No Agree to blood products: Yes Meds Home Medications and Allergies Home Medications ?Medication ?Instructions ?Recorded ?Confirmed ?Type albuterol sulfate 90 mcg/actuation 1 puff inhalation BID PRN SOB 03/02/20 04/21/25 History aerosol inhaler (ProAir HFA) vits no.126-ferrous fum 1 tablet PO DAILY 03/02/20 04/21/25 History 28 mg iron-folic acid 800 mcg tablet (Classic ) Allergies Allergy/AdvReac Type Severity Reaction Status Date / Time No Known Allergies Allergy Verified 04/21/25 13:43 Vital Signs Vital Signs - 24 hr 05/12/25 06:23 Pulse Rate 100 Blood Pressure 100/71 Exam Const: General: cooperative, healthy appearing and comfortable Nutritional Appearance: average body habitus Orientation/consciousness: oriented to person, oriented to place and oriented to time HENMT: Head: normal to inspection Resp: Effort & Inspection: normal respiratory effort Cardio: Rate: regular rate Rhythm: regular rhythm Heart sounds: S1 normal heart sound present and S2 normal heart sound present GI: Inspection: normal to inspection (Gravid soft uterus) : External Female Exam: normal external appearance Speculum Exam - Vagina: normal appearance of the vagina Speculum Exam - Cervix: normal appearance of the cervix (Cervix 3/75/2. AROM clear. FHTs reassuring.) H&P: Results Labs Labs: Short CBC 05/12/25 Range/Units 06:16 WBC 10.6 H (4.5-10.0) K/mm3 Hgb 9.4 L (12.0-15.0) g/dL Hct 30.4 L (37.0-47.0) % Plt Count 334 D (150-375) k/mm3 Assessment and Plan Assessment and plan (1) Term : Code(s): Z34.90 - Encounter for supervision of normal , unspecified, unspecified trimester Status: Acute Plan Medical induction labor. Spontaneous vaginal delivered expected. She is an epidural candidate
--- NOTE | 2025-05-12 07:15 | LDADM ---
This patient, Kusum Solano, was admitted to Labor/Delivery/Recovery 104 on 05/12/25 at 06:03. Plans for labor, pain management and were discussed with patient. Patient/family oriented to hospital policies and general routines including ID bracelet, bed and alarms, visiting hours, pain management, procedures, bathroom and other care routines, personal items, smoking policy, room service/diet and guest tray routines, infant security routines, and visiting hours. Patient/Family are encouraged to report perceived risks to care and to ask questions if they do not understand what they are told or what they should do. See OBIX for further documentation.
[2025-05-12 07:34] LABS: Syphilis IgG/IgM Antibody Non-Reactive (Nonreactive)
[2025-05-12 07:49] LABS: HIV 1/2 Ab P24 Ag Result Negative (Negative)
--- NOTE | 2025-05-12 12:24 | PM.OBPNLAB ---
Pain Control Date/time seen: 05/12/25 12:24 Pain control: tolerating well and epidural Pelvic Exam Dilation (cm): 3 Effacement (%): 75 station: -2 Amniotic membrane status: Leaking Contractions Monitor mode: Internal
[2025-05-12] MEDS: FAMOTIDINE 20 MG/2 ML VIAL IV PUSH (13:45)
--- NOTE | 2025-05-12 14:48 | PM.OBPRVD ---
OB - Vaginal Delivery Note Procedure Delivery date: 05/12/25 Events: Elective Induction of Labor Induction method: AROM Delivery augmentation: Pitocin Delivery monitor: External FHT, External Uterine and Internal Uterine Route of delivery: Episiotomy description: None Laceration Description: None Specimen: No Quantitative Blood Loss (ml): 62 Anesthesia type: Epidural Disposition: Floor Complications: No immediate complications Narrative: Patient was admitted for induction of labor in the early a.m. 05/12/2025 epidural anesthesia was placed she had a few variable decelerations received dose of amniotic infusion which she was complete she pushed delivered the head spontaneously in the RACHEL position. Nuchal cord checked noted be loose x1 number III lots but anterior posterior shoulder delivered spontaneously. Cord clamped tube was cut and passed off the table given Apgars of 9 [id number] 9 [id number]. Cord blood was drawn. Placenta delivered intact spontaneously. Twenty of Pitocin placed IV to help firm the uterus. The vaginal vault was inspected and no injury seen. Blood loss estimated at62cc. All sponge, needle, instrument counts were correct. There were no immediate complications Baby Date of : 05/12/25 Time of : 14:41 Gestational Age by Date: 39 Infant gender: Female presentation: vertex position: Right Occiput Anterior Placenta delivery description: Spontaneous Cord Vessel Description: 3 Vessels, Nuchal Cord, Loose, Reduced and Delayed Cord Clamping score one minute: 9 score five minutes: 9
--- NOTE | 2025-05-12 14:50 | PM.DS ---
DS: Admitting Diagnosis Discharge Date 05/14/2025 Admitting Diagnosis Term DS: Discharge Diagnosis Discharge Diagnosis (1) Term : Code(s): Z34.90 - Encounter for supervision of normal , unspecified, unspecified trimester Status: Acute DS: Summary Hospital Course Reason for hospitalization: Patient was admitted for induction of labor on 05/12/2025 and underwent spontaneous vaginal delivery under epidural anesthesia Hospital Course: Patient's hospital course unremarkable. She remained afebrile. She was up, voiding without difficulty, eating regular diet, ambulating, and generally without. Complaints. Patient underwent bilateral tubal ligation day Time Spent with Patient Time attestation: Total time spent providing and/or coordinating discharge services: Exam Const: General: cooperative, healthy appearing and comfortable Nutritional Appearance: average body habitus Orientation/consciousness: oriented to person, oriented to place and oriented to time HENMT: Head: normal to inspection Resp: Effort & Inspection: normal respiratory effort Cardio: Rate: regular rate Rhythm: regular rhythm Heart sounds: S1 normal heart sound present and S2 normal heart sound present GI: Inspection: normal to inspection (Gravid soft uterus) : External Female Exam: normal external appearance Speculum Exam - Vagina: normal appearance of the vagina Speculum Exam - Cervix: normal appearance of the cervix (Cervix 3/75/2. AROM clear. FHTs reassuring.) DS: Data Data Completed and Pending Labs on day of discharge: Labs from last 24 hours 05/12/25 06:16 WBC 10.6 H RBC 3.92 L Hgb 9.4 L Hct 30.4 L MCV 77.6 L MCH 24.0 L MCHC 30.9 L RDW 15.1 H Plt Count 334 D MPV 10.4 Immature Gran % (Auto) 0.6 H Neut % (Auto) 69.4 Lymph % (Auto) 22.5 [place] % (Auto) 6.1 Eos % (Auto) 0.8 Baso % (Auto) 0.6 Lymph # (Auto) 2.39 [place] # (Auto) 0.7 H Eos # (Auto) 0.1 Baso # (Auto) 0.1 Abs Immat Gran (auto) 0.06 H Absolute Neuts (auto) 7.4 H Absolute Nucleated RBC 0.000 Nucleated RBC % 0.0 Syphilis IgG/IgM Ab Non-reactive HIV 1&2 Ab/P24 Ag 4thGn Negative Blood Type A Negative Antibody Screen Positive Antibody Identification Passive Due to RH Imm Glob Antigen Identification Not Reportable CHELSEA, IgG Interpret Not Performed CHELSEA, Poly Interpret Neg CHELSEA, Complement Interp Not Performed Discharge Plan Discharge Attending physician on discharge: Isaiah Don Discharging Clinician: Isaiah Don Patient Disposition: Home Activity: may shower, no straining and pelvic rest Diet: heart healthy Wound Care Instructions: follow printed instructions Patient Instructions: Antibiotic Form, How to Stop Smoking (ED) Patient Language: [place] Stand Alone Forms: General Discharge Information Follow-up/Referrals: Isaiah Don MD [Physician, DATA PROCESSING CLERK] Discharge Medications: New hydrocodone-acetaminophen 5-325 mg tablet 1 tablet PO Q4H PRN (Reason: pain) Qty: 20 0RF Continued albuterol sulfate [ProAir HFA] 90 mcg/actuation HFA aerosol inhaler 1 puff INHALATION BID PRN (Reason: SOB) Classic 28 mg iron- 800 mcg tablet 1 tablet PO DAILY Date of admission: 05/12/25 06:03 Primary Care Provider: UNKNOWN,DOCTOR Admitting Provider: Isaiah Don Attending physician on admission: Isaiah Don Condition: Stable
--- NOTE | 2025-05-12 18:14 | OBPPTRN ---
Patient transferred to post room #281 via wheelchair. Oriented to unit, room, information board, rooming in, admission packet and security measures. Patient verbalizes understanding.
[2025-05-12] MEDS: IBUPROFEN 600 MG TABLET PO (19:23)
[2025-05-13] VITALS (10 sets, daily range): BP systolic 88–110; BP diastolic 53–76; PULSE 64–85; RESP 12–18; TEMP 36.2–36.7; O2SAT 98–100
[2025-05-13 05:22] LABS: Hematocrit 27.7 % (37.0-47.0); Hemoglobin 8.3 g/dL (12.0-15.0)
--- NOTE | 2025-05-13 06:40 | P.PNOB_ITS ---
OB - PN: Subj Subjective Date/time seen: 05/13/25 06:40 Patient comments: no complaints, pain well controlled and tolerating diet [place] baby status: doing well OB - PN: Obj Data Labs 05/13/25 03:50 Labs: Laboratory Results - last 24 hr 05/12/25 05/13/25 06:16 03:50 WBC 10.6 H RBC 3.92 L Hgb 9.4 L 8.3 L Hct 30.4 L 27.7 L MCV 77.6 L MCH 24.0 L MCHC 30.9 L RDW 15.1 H Plt Count 334 D MPV 10.4 Immature Gran % (Auto) 0.6 H Neut % (Auto) 69.4 Lymph % (Auto) 22.5 [place] % (Auto) 6.1 Eos % (Auto) 0.8 Baso % (Auto) 0.6 Lymph # (Auto) 2.39 [place] # (Auto) 0.7 H Eos # (Auto) 0.1 Baso # (Auto) 0.1 Abs Immat Gran (auto) 0.06 H Absolute Neuts (auto) 7.4 H Absolute Nucleated RBC 0.000 Nucleated RBC % 0.0 Syphilis IgG/IgM Ab Non-reactive HIV 1&2 Ab/P24 Ag 4thGn Negative Blood Type A Negative Antibody Screen Positive Antibody Identification Passive Due to RH Imm Glob Antigen Identification Not Reportable CHELSEA, IgG Interpret Not Performed CHELSEA, Poly Interpret Neg CHELSEA, Complement Interp Not Performed OB - PN A/P Assessment and Plan (1) Rh negative state in antepartum period: Code(s): O26.899 - Other specified related conditions, unspecified trimester; Z67.91 - Unspecified blood type, Rh negative Status: Acute (2) Term : Code(s): Z34.90 - Encounter for supervision of normal , unspecified, unspecified trimester Status: Acute (3) Sterilization: Code(s): Z30.2 - Encounter for sterilization Status: Acute Plan btl today Time Spent With Patient Time: Total time spent is greater than 50% in coordination of care (as documented) at patient's floor/unit and/or counseling patient: Review of Systems 2 Review of Systems: All systems reviewed & are unremarkable except as noted in HPI and below Exam 2 Const: General: cooperative, healthy appearing and comfortable Nutritional Appearance: average body habitus Orientation/consciousness: oriented to person, oriented to place and oriented to time HENMT: Head: normal to inspection Resp: Effort & Inspection: normal respiratory effort Cardio: Rate: regular rate Rhythm: regular rhythm Heart sounds: S1 normal heart sound present and S2 normal heart sound present GI: Inspection: normal to inspection (Gravid soft uterus) : External Female Exam: normal external appearance Speculum Exam - Vagina: normal appearance of the vagina Speculum Exam - Cervix: normal appearance of the cervix (Cervix 3/75/2. AROM clear. FHTs reassuring.)
--- NOTE | 2025-05-13 06:48 | WPDHPUPDATE1 ---
History and Physical Update Update Date/Time: 05/13/25 06:48 History and Physical has been reviewed, including an updated exam of the patient. There are NO changes in the patient's condition. Risks, benefits, and alternatives have been discussed and questions answered. Patient agrees to proceed with procedure. plan btl
[2025-05-13] MEDS: MULTIVIT/MIN/PREN/FOL AC/IRON TABLET 1 TAB PO (07:57)
[2025-05-13] MEDS: IBUPROFEN 600 MG TABLET PO ×2 (07:57→16:14)
[2025-05-13] MEDS: DOCUSATE SODIUM 100 MG CAPSULE PO ×2 (07:58→16:14)
[2025-05-13] MEDS: DEXTROSE 5%/LACTATED RINGERS 1,000 ML 125 ML IV CONT (07:58)
--- NOTE | 2025-05-13 10:15 | PC.NURSE ---
Consulted with mother concerning needs and she shared her ability to independently latch infant optimally without pain. Per building analyst/supervisor baby does have a tongue tie but is able to get her tongue easily over her bottom gum and mother is not having any pain with . Mother is feeding appropriately for growth of and understands stimulating to eat if needed. Infant has had appropriate feedings and meets the outcomes for weight, output, blood sugar and jaundice at this time. Per mother she would like to go home later today after her 24 hour period and a procedure she is having. Reinforced understanding of milk production, transition of milk, signs of adequate intake, transition of stool, prevention/relief of engorgement, plugged ducts, mastitis, responsive watching for feeding cues, the different methods of stimulating to breastfeed 1-3 hours after the start of the last feeding, community resources, and when to call a provider using the resource of the feeding sheet along with the mom and baby guide. Mother voiced understanding of the information shared, is confident to continue effectively her at home, when to call for assistance, denies any additional assistance or education at this time. Mother declined a [facility] referral as she is already established with the [facility] office. Reported to the Primary RN.
--- NOTE | 2025-05-13 12:45 | PC.NURSE ---
To OR per wheelchair. Report given to Aimee.
--- NOTE | 2025-05-13 13:04 | P.PNAN_ITS ---
Anes - Initial Pre Proc Eval Procedure: Operation Date: 05/13/25 14:30 Proposed Procedures p Post- Tubal Ligation(Bilateral) - Isaiah De Leon MD Date/Time: 05/13/25 13:04 Surgeon: Isaiah De Leon MD Pre Op Diagnosis: IOL Patient Data Age: 25 Gender: F Height: Weight: Last Vital Signs Temp 36.5 C 05/13/25 08:05 Pulse 79 05/13/25 08:05 Resp 16 05/13/25 08:05 BP 98/59 L 05/13/25 08:05 Pulse Ox 100 05/13/25 08:05 O2 Del Method Room Air 05/13/25 07:30 Allergies Allergy/AdvReac Type Severity Reaction Status Date / Time No Known Allergies Allergy Verified 04/21/25 13:43 Home Medications ?Medication ?Instructions ?Recorded ?Confirmed ?Type albuterol sulfate 90 mcg/actuation 1 puff inhalation B ID PRN SOB 03/02/20 04/21/25 History aerosol inhaler (ProAir HFA) vits no.126-ferrous fum 1 tablet PO DAILY 04/21/25 History 28 mg iron-folic acid 800 mcg tablet (Classic ) hydrocodone 5 mg-acetaminophen 325 1 tablet PO Q4H PRN pain #20 tabs 05/13/25 Rx mg tablet Laboratory Tests 05/13/25 03:50 Hgb 8.3 L g/dL (12.0-15.0) Hct 27.7 L % (37.0-47.0) Blood Type A Negative Antibody Screen TNP Screen Negative Baby's Blood Type O pos Baby's CHELSEA Positive Doses of RhIg Required 1 Patient hx anesthesia problems: none Family hx anesthesia problems: none Results Review: All pre-operative results and documents have been reviewed as part of the pre- operative evaluation. [facility] Past Medical History Medical History Depression Anxiety MTHFR gene mutation Marijuana smoker UTI due to Klebsiella species Asthma Family History Family History Mother Anxiety Grandparent Diabetes mellitus Heart disease Hypertension Grandparent Anxiety Diabetes mellitus Depression Heart disease Hypertension Social History Social History Smoking packs per day: 1 Smoking cigarettes per day: 20.0 Years smoked: 5 Smoking pack-years: 5.00 Smoking status: Current every day smoker Tobacco type: cigarettes Second hand tobacco smoke exposure: Yes Alcohol intake: never Substance use: never Substance use type: marijuana Last use: 02/25/22 Do You Feel Safe in your Home?: Yes Lack of Transportation: No Lack of Food: Never True Current Housing: I Have Housing Concerned About Future Housing: No Difficulty Paying Gas/Electric Bills: No Difficulty Paying for Meds: No Currently Unemployed: No Education: Grade School Difficulty w/ Childcare or Family Care: No Living arrangements: with friend(s) Occupation/Education: unemployed Additional occupation/education comments: 8th grade drop out Gender identity (if verbalized by the patient): Female Sexual Orientation (if Verbalized by the Patient): Straight or Heterosexual Spiritual care concerns: No Agree to blood products: Yes Anes - Eval Final PreProcedure Day of Procedure 05/13/25 13:04 Patient weight: morbidly obese Heart: regular rate and rhythm Lungs: clear to auscultation Airway: Mallampati scale class II Neurological: alert and oriented Last oral intake: >/= 8 hours ASA classification: III Emergent: no Anesthetic plan: proceed Anesthesia type and monitoring: general ETT and standard monitoring Results Review: All pre-operative results and documents have been reviewed as part of the pre- operative evaluation. Informed Consent: The patient's anesthetic plan and its attendant risks and benefits were discussed with the patient/family/POA. Questions were solicited and answers provided to the satisfaction of the patient/family/POA.
[2025-05-13] MEDS: LIDOCAINE 1% LOCAL INJ 10 ML VIAL INFILTRATE (13:33)
--- NOTE | 2025-05-13 13:40 | S_PTH ---
PATIENT: Kusum Solano LOC: ANHOB2 U#:[id number] AGE/SX: 25/F ROOM: 281 RE05/12/[address]: Isaiah De Leon MD : 2000 BED: 00 DIS: 05/13/2025 SPEC #: [id number] RECD: 05/13/25 14:26 STATUS: FLORES MARRUFO #: [id number] USAMA: 05/13/25 13:[address]: Isaiah Don DEPT: [facility] Surgical RECD BY: Irish Villa MLT, ([facility]) ENTERED: 05/13/25 14:26 SP TYPE: Surgical OTHR DR: UNKNOWN,DOCTOR Tissues: A - Fallopian Tube Single B - Fallopian Tube Single Procedures: Gross and Microscopic Level 2 Hematoxylin and Eosin Stain
--- NOTE | 2025-05-13 13:49 | W.PM.PROC2 ---
Procedure Note - Detailed Date of Procedure 05/13/25 Pre-op Diagnosis Sterilization Post-op Diagnosis Other (Sterilization) Procedure Performed bilateral tubal ligation via modified [place] method Surgeon Isaiah De Leon MD Anesthesia General Indications 25-year-old multiparous day 1 desires permanent sterilization Findings Normal uterus. Normal tubes. Description of Procedure Patient was prepped draped in normal sterile fashion placed in the supine position. Under excellent general anesthetic the abdomen was instilled with a 10cc of the 1% xylocaine anesthesia locally an infraumbilical incision made the. Fascia incised and upward outward fashion bilaterally. The parietal peritoneum of like a clamps and by sharp dissection the left fallopian tube was grasped in its mid portion traversed to its lateral edge returned 1st the midportion freed tie of knuckle of tube with 0 chromic was placed followed by piercing the peritoneum and free tied the distal and proximal legs with 0 chromic the portion between cut off passed off the table and marked as portion of left fallopian tube. Hemostasis was assured this was turned the abdomen. In similar fashion right the right fallopian tube was grasped at the mid portion traversed to the fimbriated end report traversed to the midportion. A good knuckle of tube formed with whole chromic and this was then free tied the distal and proximal legs were free tied with 0 chromic the portion between cut passed off the table and marked as portion of right fallopian tube. Hemostasis was assured and the tube removed returned to the abdomen. The fascia then closed with continuous running 0 Vicryl from lateral edge to lateral edge skin closed with 4-0 Monocryl and glue. QBL was 5cc I all sponge, needle, instrument counts were correct. There were no immediate complications Estimated Blood Loss 5 Drains No Packing No Pathology Yes Complications No immediate complications Condition Stable Disposition PACU
[2025-05-13] MEDS: LACTATED RINGERS 1,000 ML 30 ML IV CONT (13:55)
[2025-05-13] MEDS: fentaNYL CITRATE INJ (*CRX) 100 MCG/2 ML VIAL 25 MCG IV PUSH ×6 (14:01→14:30)
--- NOTE | 2025-05-13 14:40 | WPDANLDPN2 ---
Anes-Prog Note L&D Date/Time: 05/13/25 14:40 Comfortable throughout: labor and delivery Neuraxial method: epidural Epidural/Spinal procedure site: tender Neuro status: Neuro function grossly intact. Vital Signs: Last Vital Signs Temp 36.2 C L 05/13/25 13:55 Pulse 64 05/13/25 14:30 Resp 16 05/13/25 14:30 BP 97/76 L 05/13/25 14:30 Pulse Ox 98 05/13/25 14:30 O2 Del Method Room Air 05/13/25 14:30 Pain score (VAS): 2 I/O: Intake & Output 05/12/25 05/13/25 05/13/25 23:59 07:59 15:59 Intake Total 100 Balance 100 Patient feedback: Patient satisfied with anesthetic care.
--- NOTE | 2025-05-13 15:25 | PC.NURSE ---
This patient, Kusum Solano, was received from PACU on 05/13/25 at 1525. Patient reoriented to unit.
[2025-05-13] MEDS: SIMETHICONE 80 MG TAB.CHEW PO (16:15)
[2025-05-13] MEDS: RHO(D) IMMUNE GLOBULIN 300 MCG/2 ML SYRINGE IM (19:17)
== END 2025-05-13 19:44 | disposition home or self-care (01) | DRG 541 ==
LOC: ANHLDR 14:52 → ANHOB2 18:16
PROVIDERS: Admitting Provider Obstetrics & Gynecology; Visit Provider Obstetrics & Gynecology
PROC: 0UB70ZZ Excision of Bilateral Fallopian Tubes, Open Approach (ICD-10-PCS; CPT 58605; principal; 2025-05-13 14:30)
DX: O69.81X0 Labor and delivery complicated by cord around neck, without compression, not applicable or unspecified (principal); Z37.0 Single live birth; Z3A.39 39 weeks gestation of pregnancy; Z30.2 Encounter for sterilization; O76 Abnormality in fetal heart rate and rhythm complicating labor and delivery; F32.A Depression, unspecified; O99.344 Other mental disorders complicating childbirth; F41.9 Anxiety disorder, unspecified
CPT/HCPCS: 36415; 85014; 85018; 85025; 85461; 86593; 86703; 86850; 86880; 86900; 86901; 86902; 88302; 90384; A9270; G0432; J2003; J2590; J2790; J2795; J3010; J7120; J7121